=== PATIENT | male | born 1940 | race Caucasian/White ===

== ENCOUNTER 2022-10-28 17:39 | Observation (INO) ==
[2022-10-28] MEDS ORDERED: Iodixanol (CONTRAST) 320 MG/ML 100 ML SDV IV ONE (21:33)
[2022-10-28 21:52] LABS: ABS Basophils 0.1 10^3/uL (0.0-0.1); ABS Eosinophils 0.1 10^3/uL (0.0-0.5); ABS Lymphocytes 1.1 10^3/uL (1.0-4.8); ABS Monocytes 0.6 10^3/uL (0.0-1.1); ABS Neutrophils 3.1 10^3/uL (1.5-7.6); Eosinophil % 1.4 %; Hematocrit 38.6 % (38-53); Hemoglobin 13.3 g/dL (13.2-16.3); Lymphocyte % 22.3 %; Mean Corpuscular Hemoglobin 32.5 pg (27-33); Mean Corpuscular Hgb Conc 34.5 g/dL (31-36); Mean Corpuscular Volume 94.3 fL (80-97); Mean Platelet Volume 8.1 fL (7.5-11.2); Nucleated Red Blood Cells % 0.1 /100 WBC (0.0-0.4); Platelet Count 158 10^3/uL (150-450); Red Blood Count 4.09 10^6/uL (4.06-5.63); Red Cell Distribution Width 13.8 % (12-17); White Blood Count 4.9 10^3/uL (3.6-10.2)
[2022-10-28 22:00] LABS: Activated Partial Thrombo Time 33.8 seconds (26.0-38.0); INR 1.18 (0.88-1.18)
[2022-10-28 22:21] LABS: Albumin 3.8 g/dL (3.2-5.2); Albumin/Globulin Ratio 1.9 (1-3); Creatinine, Serum 1.18 mg/dL (0.67-1.17); HDL Cholesterol 76.2 mg/dL; Potassium 4.5 mmol/L (3.5-5.0); Total Bilirubin 0.8 mg/dL (0.2-1.0); Total Protein 5.8 g/dL (6.4-8.9)
[2022-10-28 23:56] LABS: Urine Appearance Clear; Urine Bilirubin Negative (Negative); Urine Blood 1+ (Negative); Urine Color Yellow; Urine Glucose Negative (Negative); Urine Ketones Negative (Negative); Urine Nitrite Negative (Negative); Urine Protein Negative (Negative); Urine Specific Gravity 1.025 (1.002-1.030); Urine Urobilinogen Negative (Negative)
[2022-10-28 23:58] LABS: Urine Bacteria Absent (Absent); Urine Red Blood Cell Trace(0-2/hpf) (Absent); Urine White Blood Cell Absent (Absent)
[2022-10-29] MEDS ORDERED: Polyethylene Glycol 3350 17 GM PACKET PO PRN (00:32)
[2022-10-29 05:17] LABS: Creatinine, Serum 1.15 mg/dL (0.67-1.17); eGFR CKD-EPI 63.9 (>60)
[2022-10-29] MEDS: Heparin 5000 UNITS/ML 1 mL VIAL SUBCUT SCH ×3 (05:18→21:25)
[2022-10-29 08:52] LABS: TSH Ultra Thyroid Stim Horm 5.75 mcIU/mL (0.34-5.60)
[2022-10-29] MEDS ORDERED: Cholecalciferol (VIT D3) 1,000 unit TAB PO SCH (09:00)
[2022-10-29 10:52] LABS: Thyroid Peroxidase Antibodies < 0.25 IU/mL (<9)
[2022-10-29 11:05] LABS: Thyroglobulin Antibody II 0.2 IU/mL (<4.0)
[2022-10-29] MEDS ORDERED: Lorazepam PYXIS KEY PRN (16:55)
[2022-10-29] MEDS ORDERED: LORazepam 2 mg VIAL 1 ml IV PUSH PRN (16:55)
[2022-10-29 19:59] VITALS: BP 184/96
== END 2022-10-29 23:32 | disposition home or self-care (01) ==
LOC: EDHOLD 17:39 → ED 17:39 → SUATTDRO 23:31 → EDHOLD 10-29 23:23
PROVIDERS: ADMIT Internal Medicine; ATTEND Internal Medicine

== ENCOUNTER 2023-11-21 05:36 | Observation (INO) ==
[~2023-11-21 05:36] MED LIST: Metoclopramide 5 MG/ML VIAL (10 mg) IV PRN; NS 0.45% 1000 ml BAG 1,000 ML IV SCH; Naloxone 0.4 mg VIAL 0.4 mg/ml 1 ml VIAL IV PRN; Ondansetron 4 mg VIAL 2 MG/ML 2 ml VIAL IV PRN; fentaNYL 100 mcg/2 ml 50 MCG/ML VIAL IV PRN
[2023-11-21] MEDS ORDERED: ceFAZolin 2 GM PREMIX 2 GM/50 ML BAG ONE (06:00)
[2023-11-21 06:19] LABS: Rapid COVID-19 Molecular Undetected (Undetected)
[2023-11-21] MEDS ORDERED: Propofol 10 MG/ML 20 ML BTL ONE (06:58)
[2023-11-21] MEDS ORDERED: Phenylephrine IV 10 MG/ML 1 ml VIAL ONE (06:59)
[2023-11-21] MEDS ORDERED: Lidocaine 2% PF 5 ML VIAL ONE (06:59)
[2023-11-21] MEDS ORDERED: KETAMINE HCL 10 MG/ML 20 ml VIAL (200 MG) ONE (07:05)
[2023-11-21] MEDS ORDERED: ROPIVACAINE 5 MG/ML 30 ML BTL (0.5%) ONE (07:11)
[2023-11-21] MEDS ORDERED: Midazolam 2 mg/2 ml VIAL 1 mg/ml 2 ml VIAL (2 mg) ONE (07:27)
[2023-11-21] MEDS ORDERED: Glycopyrrolate IV 0.2 MG/ML 1 ML VIAL ONE (08:25)
[2023-11-21] MEDS ORDERED: Ondansetron 4 mg VIAL 2 MG/ML 2 ml VIAL ONE (09:00)
[2023-11-21] MEDS ORDERED: Ondansetron 4 mg VIAL 2 MG/ML 2 ml VIAL IV PRN (10:17)
[2023-11-21] MEDS ORDERED: Ondansetron ODT 4 mg TAB 4 MG TAB PO PRN (10:17)
[2023-11-21] MEDS ORDERED: Morphine 2 MG/ML SYRINGE IV PRN (10:17)
[2023-11-21] MEDS ORDERED: Lactulose 30 ml UDC PO PRN (10:17)
[2023-11-21] MEDS ORDERED: Calcium Carb (TUMS) 500 mg CHEW TAB PO PRN (10:17)
[2023-11-21] MEDS ORDERED: Magnesium Hydroxide LIQ 30 ML UDC PO PRN (10:17)
[2023-11-21 12:16] LABS: Hematocrit 39.2 % (38-53); Hemoglobin 13.3 g/dL (13.2-16.3)
[2023-11-21] MEDS: Lactated Ringers 1000 ml BAG 1,000 ML IV SCH ×2 (12:42→13:04)
[2023-11-21] MEDS: Buffered Lidocaine 1% SYRIN 1 ml INTRADERM ONE (12:42)
[2023-11-21] MEDS: Scopolamine 1 mg/72hr PATCH TRANSDERM ONE (12:42)
[2023-11-21] MEDS: Acetaminophen IV 1 GM/100ML 1,000 MG/100 ML BAG IV ONE (12:42)
[2023-11-21 15:23] VITALS: BP 129/86
[2023-11-21] MEDS: ceFAZolin 2 GM in NS PREMIX 2 GM/100 ML BAG IVPB SCH (16:01)
[2023-11-21] MEDS ORDERED: Magnesium Hydroxide LIQ 30 ML UDC PO SCH (21:00)
[2023-11-22] MEDS ORDERED: Vitamin THERAPEUTIC TAB PO SCH (09:00)
== END 2023-11-21 17:15 | disposition home or self-care (01) ==
LOC: OR 05:36 → SSU 05:36
PROVIDERS: ADMIT Orthopaedic Surgery Adult Reconstructive Orthopaedic Surgery; ATTEND Orthopaedic Surgery Adult Reconstructive Orthopaedic Surgery